=== PATIENT | female | born 1930 | race Caucasian/White ===

== ENCOUNTER → 2016-11-05 09:55 | Outpatient (CLI) | payer MEDICARE, OTHER ==
[2016-02-05 21:29] VITALS: BMI 29.0
[~2016-11-05 09:55] MED LIST: ACETAMINOPHEN500 M1 PO; ASPIRIN325 MG PO; BAYER CHEWABLE81 MG PO; BENZONATATE200 MG PO; CATAPRES0.1 MG PO; COZAAR100 MG PO; ESTER-C 500 MG1 TAB PO; LEVAQUIN500 MG PO; LEVOXYL50 MCG PO; LISINOPRIL10 MG PO; SYSTANE 0.3-0.4%5 ML EACH EYE; TRAVATAN Z2.5 ML EACH EYE; VIBRAMYCIN 100100 MG PO; VITAMIN D31000 UNIT PO; XARELTO15 MG PO
== END | disposition home or self-care (01) ==
LOC: D.US 09:55
DX: R92.8 Other abnormal and inconclusive findings on diagnostic imaging of breast (principal)

== ENCOUNTER → 2017-04-25 12:41 | Outpatient (CLI) | payer MEDICARE, OTHER ==
[2016-02-05 21:29] VITALS: BMI 29.0
== END | disposition home or self-care (01) ==
LOC: D.US 12:41
DX: R60.0 Localized edema (principal); M79.605 Pain in left leg

== ENCOUNTER 2017-10-14 05:11 | Day surgery (SDC) | payer MEDICARE, OTHER ==
[2017-10-13 12:26] LABS: BASOPHILS 0.3 % (0-2); EOSINOPHILS 2.4 % (0-7); HEMATOCRIT 40.3 % (36.0-48.0); HEMOGLOBIN 13.3 g/dL (12-16); IMMATURE GRANULOCYTES 0.4 % (0-5); LYMPHOCYTES 24.1 % (15-50); MCH 28.8 pg (26.0-34.0); MCV 87.2 fL (80.0-100.0); MEAN PLATELET VOLUME 9.9 fL (7.4-10.4); MONOCYTES 5.4 % (2-11); NEUTROPHILS 67.4 % (40-80); RBC 4.62 10x6/uL (4.00-5.40); RDW 14.2 % (11.5-14.5)
[2017-10-13 12:28] LABS: PLATELET COUNT 187 10x3/uL (130-400)
[2017-10-13 12:42] LABS: APTT 29.2 SECONDS (22.8-39.4); INR 0.95 (0.85-1.17); PROTIME 12.3 SECONDS (11.6-15.0)
[2017-10-13 12:56] LABS: ANION GAP 11.2 mmol/L (8-16); CALCIUM 9.9 mg/dL (8.5-10.1); CARBON DIOXIDE 30.9 mmol/L (21.0-32.0); CREATININE - SERUM 1.2 mg/dL (0.6-1.3); POTASSIUM - SERUM 4.1 mmol/L (3.5-5.1)
[~2017-10-14] VITALS: Ht 165.1 cm; Wt 77.1 kg
--- NOTE | ~2017-10-14 | OP ---
PATIENT NAME: ROHAN BAUMAN MEDICAL RECORD: [id number] :28 [facility]ATION:[facility] AD[facility]ION DATE: SURGEON: VIVEK PEACE DO DATE OF OPERATION: 10/14/2017 PROCEDURE PERFORMED: Left endoscopic carpal tunnel release. PREOPERATIVE DIAGNOSIS: Left carpal tunnel syndrome. POSTOPERATIVE DIAGNOSIS: Left carpal tunnel syndrome. INDICATIONS: Ms. Bauman is an 87-year-old female who had a severe pain in bilateral upper extremities into the first 3 digits that wake her up at night and are numb. She had a nerve conduction test, which showed severe bilateral carpal tunnel syndrome shown to the left on first one today. SURGEON: Vivek Peace DO TOURNIQUET TIME: 11 minutes. DESCRIPTION OF PROCEDURE: The patient was taken to the operative suite, given general anesthetic and a gram of Ancef and laid in supine position, the left upper extremity was prepped and draped in sterile fashion. A timeout was performed and everyone was in agreement of correct side, site and patient. The tourniquet had been placed above the elbow prior to being prepped and draped. Once the patient was prepped and draped and timeout was performed and given Ancef, she had no reaction even though she has a PENICILLIN ALLERGY. We used an Esmarch to exsanguinate the left upper extremity and the tourniquet was inflated to 250 mmHg. Once this was done, incision line was drawn out, the proximal wrist crease and just through the skin and then Ragnells were used to bluntly dissect down to the carpal tunnel. The proximal and distal forearm fascia was released at that time with scissors and a pickup and then the carpal tunnel itself was exposed and dilated and then the sheath was placed into the carpal tunnel. Once the sheath was placed, the camera was put in and viewed around, there is no sign of the nerve being in the way. A rasp was used to clean out the transcarpal ligament and then I probed to ensure that that was there and then the knife was used to release the transverse carpal ligament. Then, a scissors and pickup were used to release the most proximal portion of it and then under direct visualization with loupe magnification, a good release was seen any fibers that they may have kept it together were with scissors. Once this was done, the tourniquet was let down at 11 minutes. Any bleeding was coagulated with the bipolar and then the incision was closed with 5-0 Monocryl in inverted interrupted fashion and 10 mL of 0.5% Marcaine were injected around the incision site and up into the palm where the transcarpal ligament was released and Adaptic, 4 x 4s, Kerlix, and then Coban was slightly placed over the dressing. The patient was awakened and taken to recovery in stable condition. TRANSINT:[id number] Voice Confirmation ID: [id number] DOCUMENT ID: [id number] OPERATIVE REPORT [id number] ROHAN BAUMAN,VIVEK Koehler DO at 1857 CC: [id number] DICTATION DATE: 10/14/17 08 GALVANOMETER ASSEMBLER: 10/14/17 1207 [facility] 10/14/17 [facility] [address] [place] [address]
[~2017-10-14 05:11] MED LIST changes: +CO Q-10100 MG PO; +DYAZIDE 37.5/251 CAP PO; +LIPITOR40 MG PO; +NORVASC5 MG PO; +TYLENOL PM1 TAB PO; +XALATAN 0.0052.5 ML EACH EYE
[2017-10-14 05:55] VITALS: BP 127/65; Ht 165.1 cm; Wt 77.1 kg
[2017-10-14] MEDS ORDERED: DURICEF500 MG PO (07:54)
[2017-10-14] MEDS ORDERED: HYDROCODON-ACE1 EAC7 PO (07:55)
== END 2017-10-14 09:40 | disposition home or self-care (01) ==
LOC: D.OPS 05:11 → D.PAN 07:30 → D.OPS 09:40
PROVIDERS: Anesthesiology
DX: G56.03 Carpal tunnel syndrome, bilateral upper limbs (principal); I10 Essential (primary) hypertension; E03.9 Hypothyroidism, unspecified; K21.9 Gastro-esophageal reflux disease without esophagitis; Z01.812 Encounter for preprocedural laboratory examination

== ENCOUNTER → 2017-10-20 17:27 | Outpatient (CLI) | payer MEDICARE, OTHER ==
[2017-10-14 05:55] VITALS: BMI 28.3
[~2017-10-20 17:27] MED LIST changes: +DURICEF500 MG PO; +HYDROCODON-ACE1 EAC7 PO; +POTASSIUM
== END | disposition home or self-care (01) ==
LOC: D.LABREF 17:27
DX: M16.12 Unilateral primary osteoarthritis, left hip (principal); Z11.8 Encounter for screening for other infectious and parasitic diseases

== ENCOUNTER 2017-11-29 05:41 | Inpatient (IN) | payer MEDICARE, OTHER | END 2017-12-02 19:08 | DRG 470 | LOC: D.SDCHOLD 05:41 → D.MS 14:38 | PROC: 0SRB0JZ Replacement of Left Hip Joint with Synthetic Substitute, Open Approach (ICD-10-PCS; principal; 2017-11-29) | DX: M16.12 Unilateral primary osteoarthritis, left hip (principal); E03.9 Hypothyroidism, unspecified; E78.5 Hyperlipidemia, unspecified; I10 Essential (primary) hypertension; Z86.718 Personal history of other venous thrombosis and embolism; K59.00 Constipation, unspecified ==

== ENCOUNTER → 2018-07-12 08:24 | Outpatient (CLI) | payer MEDICARE, OTHER ==
[2017-11-30 12:16] VITALS: BMI 28.2
[~2018-07-12 08:24] MED LIST changes: +ELIQUIS2.5 MG PO; +HYDROCODONE-APA1 TAB PO
== END | disposition home or self-care (01) ==
LOC: D.RAD 08:00
DX: C85.88 Other specified types of non-Hodgkin lymphoma, lymph nodes of multiple sites (principal)

== ENCOUNTER → 2018-08-24 12:33 | Outpatient (CLI) | payer MEDICARE, OTHER ==
[2017-11-30 12:16] VITALS: BMI 28.2
[~2018-08-24 12:33] MED LIST changes: +DULCOLAX STOOL100 MG PO; +DULCOLAX10 MG/SUPP RC; +GENTAK3.5 GM EACH EYE; +GENTAMICIN 0.3 %5 ML LEFT EYE; +LIPITOR20 MG PO; +MELATONIN10 M1 PO; +METAMUCIL PACKE1 PKT PO; +MUCINEX600 MG PO; +SYNTHROID50 MCG PO; +ZOFRAN4 MG PO; +ZYRTEC10 MG PO; +[UNRECOGNIZED DRUG - OTHER] NASAL; +[UNRECOGNIZED DRUG - OTHER] PO
== END | disposition home or self-care (01) ==
LOC: D.CT 12:33
DX: R05 Cough (principal); J40 Bronchitis, not specified as acute or chronic

== ENCOUNTER 2018-09-17 18:51 | Inpatient (IN) | payer MEDICARE, OTHER ==
[~2018-09-17] VITALS: Ht 165.1 cm; Wt 72.6 kg
--- NOTE | ~2018-09-17 | MORECARE ---
CASE MANAGEMENT DISCHARGE SUMMARY PATIENT: ROHAN BAUMAN UNIT: [id number] ADM DATE: 09/17/18 AGE: 88 : 29 SEX: F ROOM/BED: D.2226 AUTHOR: SHEBA ALARCON PHYSICIAN: REFERRING PHYSICIAN: DAWOOD HERRERA MD DATE OF SERVICE: 09/19/18 Discharge Plan Patient Name: ROHAN BAUMAN Facility: [facility]:[place] : 1930 Planned Disposition: Home Anticipated Discharge Date: Discharge Date: Expected LOS: Initial Reviewer: [email or web address] Initial Review Date: 09/19/2018 Generated: 09/19/18 12:54 pm Patient Name: ROHAN BAUMAN Page [phone] at 1154 All edits/amendments must be made on the electronic document DICTATION DATE: 09/19/18 1154 OPERATIONS SUPPORT PROFESSIONALS: PAMELA 09/19/18 1154 RPT#: [id number] DC DATE: STATUS: ADM IN [facility] [address] [place] [address] END OF REPORT
--- NOTE | ~2018-09-17 | MORECARE ---
CASE MANAGEMENT DISCHARGE SUMMARY PATIENT: ROHAN BAUMAN UNIT: [id number] ADM DATE: 09/17/18 AGE: 88 : 29 SEX: F ROOM/BED: D.2226 AUTHOR: SHEBA ALARCON PHYSICIAN: REFERRING PHYSICIAN: MARCELLE DO MD DATE OF SERVICE: 09/27/18 Discharge Plan Patient Name: ROHAN BAUMAN Facility: [facility]:[place] : 1930 Planned Disposition: Home Anticipated Discharge Date: Discharge Date: 09/27/2018 Expected LOS: 0 Initial Reviewer: [email or web address] Initial Review Date: 09/19/2018 Generated: 09/27/18 5:56 pm Comments DCP- Discharge Planning Updated by [email or web address]: Diana Nuñez on 09/27/18 7:[address] Patient Name: ROHAN BAUMAN Encounter No: [id number] : 1930 Primary Insurance: MEDICARE A & B Anticipated DC Date: Planned Disposition: Home External Planned Provider: : DCP follow-up note: Patient in agreement with discharge plan. States her daughter will pick her up. Declines home health. No changes to plan. Case management will follow and assist as needed. Diana Nuñez DCP- Discharge Planning Updated by [email or web address]: Diana Nuñez on 09/19/18 11:[address] Dr. Do's nurse (Janeen) concerning urine culture not done on admission. She states Dr. Do would like urine culture. States her daughter has called concerning patient's aspirin and Dr. Do would like to give her aspirin 81mg a day. DCP- Discharge Planning Updated by [email or web address]: Diana Nuñez on 09/19/18 10:[address] Patient Name: ROHAN BAUMAN Admission Status: ER Accout number: [id number] Admission Date: 09-17-2018 : 1930 Admission Diagnosis: Attending: DAWOOD HERRERA Current LOS: 2 Anticipated DC Date: Planned Disposition: Home Primary Insurance: MEDICARE A & B Discharge Planning Comments: CM met with patient to discuss discharge planning. Verbal permission received to discuss discharge planning with her daughter in the room. States she lives alone. States she is independent with all ADL's and IADL's. I informed her of the availability of rehab, SNF, home health, and additional DME. States she has all the equipment she needs and declines home health at this time. States her discharge plan is to return home. States her daughter will drive her home on discharge. No needs identified at this time. CM will continue to follow and assist with discharge planning/needs. Hvac Field Service Technician: Diana Nuñez DCPIA - Discharge Planning Initial Assessment Updated by [email or web address]: Diana Nuñez on 09/19/18 11:54 am * Is the patient Alert and Oriented? Yes * How many steps to enter\exit or inside your home? 0/0 * PCP Dr. Do * Pharmacy [facility] * Preadmission Environment Home Alone * ADLs Independent * Equipment Bedside Commode Cane Walker * List name and contact numbers for known caregivers / representatives who currently or will assist patient after discharge: Kristy Winter - DTR - [phone] * Verbal permission to speak to the caregivers and representatives has been obtained from the patient. Yes * Community resources currently utilized None * Additional services required to return to the preadmission environment? No * Can the patient safely return to the preadmission environment? Yes * Has this patient been hospitalized within the prior 30 days at any hospital? No Coverage Notice Reviewer: [email or web address] Nuñez Notice Issued Date-Time: 09/19/2018 12:52 Notice Type: Notice Delivered To: Relationship to Patient: Carpentry Teacher Name: Delivery Method: - Radha Days: Prior Verbal Notification: Recipient Understood Notice: Recipient Signature: Med Rec Note Co-signed by Attending: Coverage Notice Comment: Reviewer: [id number] Nuñez Notice Issued Date-Time: 09/27/2018 8:44 Notice Type: IM Discharge Notice Notice Delivered To: Patient Relationship to Patient: Self Carpentry Teacher Name: Delivery Method: HAND - Hand Delivered Rahda Days: Prior Verbal Notification: Recipient Understood Notice: Yes Recipient Signature: Yes Med Rec Note Co-signed by Attending: Coverage Notice Comment: IMM explained, signed, copy given, original placed in MR Last DP export: 09/27/18 7:56 Patient Name: ROHAN BAUMAN Page [phone] at 1656 All edits/amendments must be made on the electronic document DICTATION DATE: 09/27/181654 PLANT FACILITIES TECHNICIAN: PAMELA 09/27/181654 RPT#: [id number] DC DATE:09/27/18 STATUS: DIS IN [facility] [address] [facility] [place] [address] END OF REPORT
--- NOTE | ~2018-09-17 | MORECARE ---
CASE MANAGEMENT DISCHARGE SUMMARY PATIENT: ROHAN BAUMAN UNIT: [id number] ADM DATE: 09/17/18 AGE: 88 : 29 SEX: F ROOM/BED: D.2226 AUTHOR: DORIAN,DOC PHYSICIAN: REFERRING PHYSICIAN: DAWOOD HERRERA MD DATE OF SERVICE: 09/19/18 Discharge Plan Patient Name: ROHAN BAUMAN Facility: [facility]:[place] : 1930 Planned Disposition: Home Anticipated Discharge Date: Discharge Date: Expected LOS: Initial Reviewer: [email or web address] Initial Review Date: 09/19/2018 Generated: 09/19/18 1:01 pm Comments DCP- Discharge Planning Updated by [email or web address]: Diana Nuñez on 09/19/18 10:[address] Patient Name: ROHAN BAUMAN Admission Status: ER Accout number: [id number] Admission Date: 09-17-2018 : 1930 Admission Diagnosis: Attending: DAWOOD HERRERA Current LOS: 2 Anticipated DC Date: Planned Disposition: Home Primary Insurance: MEDICARE A & B Discharge Planning Comments: CM met with patient to discuss discharge planning. Verbal permission received to discuss discharge planning with her daughter in the room. States she lives alone. States she is independent with all ADL's and IADL's. I informed her of the availability of rehab, SNF, home health, and additional DME. States she has all the equipment she needs and declines home health at this time. States her discharge plan is to return home. States her daughter will drive her home on discharge. No needs identified at this time. CM will continue to follow and assist with discharge planning/needs. Hand Frame Surgical Elastic Knitter: Diana Nuñez DCPIA - Discharge Planning Initial Assessment Updated by [email or web address]: Diana Nuñez on 09/19/18 11:54 am * Is the patient Alert and Oriented? Yes * How many steps to enter\exit or inside your home? 0/0 * PCP Dr. Harvey * Pharmacy [facility] * Preadmission Environment Home Alone * ADLs Independent * Equipment Bedside Commode Cane Walker * List name and contact numbers for known caregivers / representatives who currently or will assist patient after discharge: Kristy Winter - DTR - [phone] * Verbal permission to speak to the caregivers and representatives has been obtained from the patient. Yes * Community resources currently utilized None * Additional services required to return to the preadmission environment? No * Can the patient safely return to the preadmission environment? Yes * Has this patient been hospitalized within the prior 30 days at any hospital? No Last DP export: 09/19/18 10:54 a Patient Name: ROHAN BAUMAN Page [phone] at 1202 All edits/amendments must be made on the electronic document DICTATION DATE: 09/19/18 1201 PEANUT FARMER: PAMELA 09/19/18 1201 RPT#: [id number] OK DATE: STATUS: ADM IN [facility] [address] [place] [address] END OF REPORT
--- NOTE | ~2018-09-17 | MORECARE ---
CASE MANAGEMENT DISCHARGE SUMMARY PATIENT: ROHAN BAUMAN UNIT: [id number] ADM DATE: 09/17/18 AGE: 88 : 29 SEX: F ROOM/BED: D.2226 AUTHOR: SHEBA ALARCON PHYSICIAN: REFERRING PHYSICIAN: MARCELLE DO MD DATE OF SERVICE: 09/27/18 Discharge Plan Patient Name: ROHAN BAUMAN Facility: [facility]:[place] : 1930 Planned Disposition: Home Anticipated Discharge Date: Discharge Date: Expected LOS: Initial Reviewer: [email or web address] Initial Review Date: 09/19/2018 Generated: 09/27/18 9:56 am Comments DCP- Discharge Planning Updated by [email or web address]: Diana Nuñez on 09/27/18 7:[address] Patient Name: ROHAN BAUMAN Encounter No: [id number] : 1930 Primary Insurance: MEDICARE A & B Anticipated DC Date: Planned Disposition: Home External Planned Provider: : DCP follow-up note: Patient in agreement with discharge plan. States her daughter will pick her up. Declines home health. No changes to plan. Case management will follow and assist as needed. Diana Nuñez DCP- Discharge Planning Updated by [email or web address]: Diana Nuñez on 09/19/18 11:[address] with Dr. Do's nurse (Janeen) concerning urine culture not done on admission. She states Dr. Do would like urine culture. States her daughter has called concerning patient's aspirin and Dr. Do would like to give her aspirin 81mg a day. DCP- Discharge Planning Updated by [email or web address]: Diana Nuñez on 09/19/18 10:[address] Patient Name: ROHAN BAUMAN Admission Status: ER Accout number: [id number] Admission Date: 09-17-2018 : 1930 Admission Diagnosis: Attending: DAWOOD HERRERA Current LOS: 2 Anticipated DC Date: Planned Disposition: Home Primary Insurance: MEDICARE A & B Discharge Planning Comments: CM met with patient to discuss discharge planning. Verbal permission received to discuss discharge planning with her daughter in the room. States she lives alone. States she is independent with all ADL's and IADL's. I informed her of the availability of rehab, SNF, home health, and additional DME. States she has all the equipment she needs and declines home health at this time. States her discharge plan is to return home. States her daughter will drive her home on discharge. No needs identified at this time. CM will continue to follow and assist with discharge planning/needs. Piano Bench Assembler: Diana Nuñez DCPIA - Discharge Planning Initial Assessment Updated by [email or web address]: Diana Nuñez on 09/19/18 11:54 am * Is the patient Alert and Oriented? Yes * How many steps to enter\exit or inside your home? 0/0 * PCP Dr. Do * Pharmacy [facility] * Preadmission Environment Home Alone * ADLs Independent * Equipment Bedside Commode Cane Walker * List name and contact numbers for known caregivers / representatives who currently or will assist patient after discharge: Kristy Winter - DTR - [phone] * Verbal permission to speak to the caregivers and representatives has been obtained from the patient. Yes * Community resources currently utilized None * Additional services required to return to the preadmission environment? No * Can the patient safely return to the preadmission environment? Yes * Has this patient been hospitalized within the prior 30 days at any hospital? No Coverage Notice Reviewer: [id number] Nuñez Notice Issued Date-Time: 09/19/2018 12:52 Notice Type: Notice Delivered To: Relationship to Patient: Cane Cutter Name: Delivery Method: - Radha Days: Prior Verbal Notification: Recipient Understood Notice: Recipient Signature: Med Rec Note Co-signed by Attending: Coverage Notice Comment: Reviewer: [id number] Nuñez Notice Issued Date-Time: 09/27/2018 8:44 Notice Type: IM Discharge Notice Notice Delivered To: Patient Relationship to Patient: Self Cane Cutter Name: Delivery Method: HAND - Hand Delivered Radha Days: Prior Verbal Notification: Recipient Understood Notice: Yes Recipient Signature: Yes Med Rec Note Co-signed by Attending: Coverage Notice Comment: IMM explained, signed, copy given, original placed in MR Last DP export: 09/19/18 11:49 a Patient Name: ROHAN BAUMAN Page 52504 at 0856 All edits/amendments must be made on the electronic document DICTATION DATE: 09/27/18855 CHAIRPERSON ANESTHESIOLOGY: PAMELA 09/27/18855 RPT#: [id number] DC DATE: STATUS: ADM IN [facility] [address] [facility] [place] [address] END OF REPORT
[~2018-09-17 18:51] MED LIST changes: -DULCOLAX STOOL100 MG PO; -DULCOLAX10 MG/SUPP RC; -GENTAK3.5 GM EACH EYE; -GENTAMICIN 0.3 %5 ML LEFT EYE; -LIPITOR20 MG PO; -MELATONIN10 M1 PO; -METAMUCIL PACKE1 PKT PO; -MUCINEX600 MG PO; -SYNTHROID50 MCG PO; -ZOFRAN4 MG PO; -ZYRTEC10 MG PO; -[UNRECOGNIZED DRUG - OTHER] NASAL; -[UNRECOGNIZED DRUG - OTHER] PO
[2018-09-17] MEDS ORDERED: DULCOLAX10 MG/SUPP RC (18:57)
[2018-09-17] MEDS ORDERED: ZYRTEC10 MG PO ×2 (18:58→23:49)
[2018-09-17] MEDS ORDERED: ZOFRAN4 MG PO ×2 (18:58→23:48)
[2018-09-17] MEDS ORDERED: MELATONIN10 M1 PO ×2 (18:59→23:51)
[2018-09-17] MEDS ORDERED: GENTAK3.5 GM EACH EYE (19:00)
[2018-09-17] MEDS ORDERED: MUCINEX600 MG PO ×2 (19:00→23:51)
[2018-09-17 19:29] LABS: BASOPHILS 0.1 % (0-2); EOSINOPHILS 0.1 % (0-7); HEMATOCRIT 40.2 % (36.0-48.0); HEMOGLOBIN 13.3 g/dL (12-16); IMMATURE GRANULOCYTES 0.5 % (0-5); LYMPHOCYTES 12.8 % (15-50); MCHC 33.1 g/dL (31.0-37.0); MCV 81.7 fL (80.0-100.0); MONOCYTES 8.5 % (2-11); PLATELET COUNT 256 10x3/uL (130-400); RBC 4.92 10x6/uL (4.00-5.40); RDW 14.4 % (11.5-14.5); WBC 13.4 10x3/uL (4.8-10.8)
[2018-09-17 19:52] VITALS: BP 163/72
[2018-09-17 20:24] VITALS: BP 177/77
[2018-09-17 20:44] LABS: APTT 28.6 SECONDS (22.8-39.4); INR 1.15 (0.85-1.17); PROTIME 14.2 SECONDS (11.6-15.0)
[2018-09-17 21:36] LABS: APPEARANCE HAZY (CLEAR); BILIRUBIN NEGATIVE (NEGATIVE); COLOR DK YELLOW (YELLOW); GLUCOSE NEGATIVE (NEGATIVE); KETONE NEGATIVE (NEGATIVE); NITRITE POSITIVE (NEGATIVE); PROTEIN TRACE mg/dL (NEGATIVE); UROBILINOGEN NORMAL (NORMAL)
[2018-09-17 21:37] LABS: BACTERIA MANY /hpf (NONE SEEN); EPITHELIAL CELLS 0-5 /hpf (0-5); RED CELLS - URINE 0-5 /hpf (0-5)
[2018-09-17 21:43] LABS: ALBUMIN 3.1 g/dL (3.4-5.0); ANION GAP 16.1 mmol/L (8-16); BILIRUBIN - TOTAL 0.99 mg/dL (0.2-1.3); CALCIUM 8.6 mg/dL (8.5-10.1); CARBON DIOXIDE 26.2 mmol/L (21.0-32.0); CREATININE - SERUM 1.1 mg/dL (0.6-1.3); POTASSIUM - SERUM 3.3 mmol/L (3.5-5.1)
[2018-09-17] MEDS ORDERED: [UNRECOGNIZED DRUG - OTHER] PO (23:47)
[2018-09-17] MEDS ORDERED: LIPITOR20 MG PO (23:48)
[2018-09-17] MEDS ORDERED: SYNTHROID50 MCG PO (23:48)
[2018-09-17] MEDS ORDERED: DULCOLAX STOOL100 MG PO (23:49)
[2018-09-17] MEDS ORDERED: METAMUCIL PACKE1 PKT PO (23:50)
[2018-09-17] MEDS ORDERED: GENTAMICIN 0.3 %5 ML LEFT EYE (23:51)
[2018-09-17 23:52] VITALS: BP 135/71; BMI 26.6
[2018-09-17] MEDS ORDERED: [UNRECOGNIZED DRUG - OTHER] NASAL (23:54)
[2018-09-18 01:01] VITALS: BP 135/71
[2018-09-18 05:01] VITALS: BP 143/56
[2018-09-18 05:21] LABS: BASOPHILS 0.2 % (0-2); EOSINOPHILS 0.2 % (0-7); HEMOGLOBIN 12.3 g/dL (12-16); IMMATURE GRANULOCYTES 0.8 % (0-5); LYMPHOCYTES 9.2 % (15-50); MCHC 33.2 g/dL (31.0-37.0); MCV 81.1 fL (80.0-100.0); MEAN PLATELET VOLUME 10.2 fL (7.4-10.4); MONOCYTES 9.4 % (2-11); NEUTROPHILS 80.2 % (40-80); PLATELET COUNT 223 10x3/uL (130-400); RBC 4.56 10x6/uL (4.00-5.40); RDW 14.4 % (11.5-14.5)
[2018-09-18 05:33] LABS: ANION GAP 15.1 mmol/L (8-16); CALCIUM 8.4 mg/dL (8.5-10.1); CARBON DIOXIDE 26.9 mmol/L (21.0-32.0); CREATININE - SERUM 1.1 mg/dL (0.6-1.3); WBC 9.8 10x3/uL (4.8-10.8)
[2018-09-18 08:45] VITALS: BP 153/67
[2018-09-18 13:07] VITALS: BP 140/80
[2018-09-18 13:30] VITALS: BMI 26.6
[2018-09-18 13:35] VITALS: Ht 165.1 cm; Wt 72.6 kg
[2018-09-18 17:30] VITALS: BP 132/60
[2018-09-18 21:03] VITALS: BP 134/59
[2018-09-19 00:52] VITALS: BP 147/59
[2018-09-19 05:57] VITALS: BP 141/62
[2018-09-19 06:22] LABS: BASOPHILS 0.3 % (0-2); EOSINOPHILS 2.5 % (0-7); HEMATOCRIT 36.2 % (36.0-48.0); HEMOGLOBIN 11.7 g/dL (12-16); IMMATURE GRANULOCYTES 2.1 % (0-5); LYMPHOCYTES 13.8 % (15-50); MCH 26.5 pg (26.0-34.0); MCHC 32.3 g/dL (31.0-37.0); MCV 82.1 fL (80.0-100.0); MEAN PLATELET VOLUME 10.2 fL (7.4-10.4); MONOCYTES 9.1 % (2-11); NEUTROPHILS 72.2 % (40-80); PLATELET COUNT 221 10x3/uL (130-400); RBC 4.41 10x6/uL (4.00-5.40); RDW 14.5 % (11.5-14.5)
[2018-09-19 06:33] LABS: WBC 7.3 10x3/uL (4.8-10.8)
[2018-09-19 06:54] LABS: ANION GAP 14.4 mmol/L (8-16); CALCIUM 8.2 mg/dL (8.5-10.1); CARBON DIOXIDE 25.4 mmol/L (21.0-32.0); CREATININE - SERUM 0.9 mg/dL (0.6-1.3)
[2018-09-19 06:55] LABS: POTASSIUM - SERUM 3.8 mmol/L (3.5-5.1)
[2018-09-19 08:15] VITALS: BP 120/69
[2018-09-19 13:25] VITALS: BP 141/72
[2018-09-19 21:31] VITALS: BP 130/55
[2018-09-20 04:44] LABS: BASOPHILS 0.4 % (0-2); EOSINOPHILS 4.8 % (0-7); HEMATOCRIT 34.7 % (36.0-48.0); IMMATURE GRANULOCYTES 3.8 % (0-5); LYMPHOCYTES 14.5 % (15-50); MCH 26.3 pg (26.0-34.0); MCHC 31.7 g/dL (31.0-37.0); MONOCYTES 10.6 % (2-11); NEUTROPHILS 65.9 % (40-80); PLATELET COUNT 237 10x3/uL (130-400); RBC 4.18 10x6/uL (4.00-5.40); RDW 14.6 % (11.5-14.5); WBC 5.6 10x3/uL (4.8-10.8)
[2018-09-20 05:01] LABS: ANION GAP 11.2 mmol/L (8-16); CALCIUM 8.2 mg/dL (8.5-10.1); CARBON DIOXIDE 27.5 mmol/L (21.0-32.0); CREATININE - SERUM 0.8 mg/dL (0.6-1.3); POTASSIUM - SERUM 3.7 mmol/L (3.5-5.1)
[2018-09-20 06:19] VITALS: BP 139/66
[2018-09-20 08:35] VITALS: BP 168/77
[2018-09-20 12:37] VITALS: BP 187/78
[2018-09-20 17:47] VITALS: BP 135/77
[2018-09-21 01:09] VITALS: BP 172/60
[2018-09-21 04:54] LABS: BASOPHILS 0.6 % (0-2); HEMATOCRIT 35.7 % (36.0-48.0); HEMOGLOBIN 11.4 g/dL (12-16); IMMATURE GRANULOCYTES 5.4 % (0-5); LYMPHOCYTES 20.3 % (15-50); MCH 26.4 pg (26.0-34.0); MCHC 31.9 g/dL (31.0-37.0); MCV 82.6 fL (80.0-100.0); MEAN PLATELET VOLUME 10.3 fL (7.4-10.4); MONOCYTES 9.2 % (2-11); NEUTROPHILS 60.5 % (40-80); PLATELET COUNT 272 10x3/uL (130-400); RBC 4.32 10x6/uL (4.00-5.40); RDW 14.5 % (11.5-14.5); WBC 6.3 10x3/uL (4.8-10.8)
[2018-09-21 05:19] LABS: ANION GAP 9.3 mmol/L (8-16); CALCIUM 8.7 mg/dL (8.5-10.1); CARBON DIOXIDE 28.5 mmol/L (21.0-32.0); CREATININE - SERUM 0.8 mg/dL (0.6-1.3); POTASSIUM - SERUM 3.8 mmol/L (3.5-5.1)
[2018-09-21 08:33] VITALS: BP 177/68
[2018-09-21 10:19] LABS: IMMUNOGLOBULIN M 18 mg/dL (26-217)
[2018-09-21 11:21] LABS: ANA REFLEX - DIRECT Negative (Negative)
[2018-09-21 12:00] VITALS: BP 160/82
[2018-09-21 14:27] LABS: IMMUNOGLOBULIN A <5 mg/dL (64-422)
[2018-09-21 16:20] VITALS: BP 148/65
[2018-09-21 20:31] VITALS: BP 136/79
[2018-09-22 00:50] VITALS: BP 137/77
[2018-09-22 04:49] LABS: BASOPHILS 0.5 % (0-2); EOSINOPHILS 4.2 % (0-7); HEMATOCRIT 33.9 % (36.0-48.0); HEMOGLOBIN 10.7 g/dL (12-16); IMMATURE GRANULOCYTES 5.3 % (0-5); LYMPHOCYTES 16.5 % (15-50); MCH 25.9 pg (26.0-34.0); MCHC 31.6 g/dL (31.0-37.0); MCV 82.1 fL (80.0-100.0); MEAN PLATELET VOLUME 9.7 fL (7.4-10.4); MONOCYTES 8.2 % (2-11); NEUTROPHILS 65.3 % (40-80); PLATELET COUNT 232 10x3/uL (130-400); RBC 4.13 10x6/uL (4.00-5.40); RDW 14.5 % (11.5-14.5); WBC 6.2 10x3/uL (4.8-10.8)
[2018-09-22 04:58] LABS: CALC OSMOLALITY 277 mosm/kg (275-300); CALCIUM 8.3 mg/dL (8.5-10.1); CARBON DIOXIDE 29.6 mmol/L (21.0-32.0); CHLORIDE - SERUM 106 mmol/L (98-107); CREATININE - SERUM 0.7 mg/dL (0.6-1.3); GLUCOSE 99 mg/dL (74-106); POTASSIUM - SERUM 3.6 mmol/L (3.5-5.1); SODIUM 140 mmol/L (136-145); UREA NITROGEN 11 mg/dL (7-18); VANCOMYCIN - TROUGH 16.1 ug/mL (10.0-20.0); eGFR NON AFRICAN AMERICAN 83 mL/min (90-120)
[2018-09-22 05:03] VITALS: BP 124/84
[2018-09-22 05:16] LABS: IGG SUBCLASS 1 26 mg/dL (248-810); IGG SUBCLASS 2 42 mg/dL (130-555); IGG SUBCLASS 3 10 mg/dL (15-102); IGG SUBCLASS 4 <1 mg/dL (2-96); IMMUNOGLOBULIN G 87 mg/dL (700-1600)
[2018-09-22 09:03] VITALS: BP 186/85
[2018-09-22 12:33] VITALS: BP 165/72
[2018-09-22 16:38] VITALS: BP 166/72
[2018-09-22 21:13] VITALS: BP 166/77
[2018-09-22 22:07] LABS: IMMUNOGLOBULIN E <2 IU/mL (0-100)
[2018-09-23] VITALS (9 sets, daily range): BP systolic 125–199; BP diastolic 56–95
[2018-09-23 04:57] LABS: BASOPHILS 0.5 % (0-2); EOSINOPHILS 4.2 % (0-7); HEMATOCRIT 33.2 % (36.0-48.0); HEMOGLOBIN 10.6 g/dL (12-16); IMMATURE GRANULOCYTES 6.4 % (0-5); MCH 26.2 pg (26.0-34.0); MCHC 31.9 g/dL (31.0-37.0); MEAN PLATELET VOLUME 10.1 fL (7.4-10.4); MONOCYTES 9.1 % (2-11); NEUTROPHILS 58.8 % (40-80); PLATELET COUNT 217 10x3/uL (130-400); RBC 4.05 10x6/uL (4.00-5.40); RDW 14.7 % (11.5-14.5); WBC 5.5 10x3/uL (4.8-10.8)
[2018-09-23 05:14] LABS: CALC OSMOLALITY 281 mosm/kg (275-300); CALCIUM 8.3 mg/dL (8.5-10.1); CARBON DIOXIDE 29.6 mmol/L (21.0-32.0); CHLORIDE - SERUM 107 mmol/L (98-107); CREATININE - SERUM 0.7 mg/dL (0.6-1.3); GLUCOSE 93 mg/dL (74-106); POTASSIUM - SERUM 3.9 mmol/L (3.5-5.1); SODIUM 142 mmol/L (136-145); UREA NITROGEN 9 mg/dL (7-18); eGFR NON AFRICAN AMERICAN 83 mL/min (90-120)
[2018-09-24 05:35] VITALS: BP 184/84
[2018-09-24 07:45] VITALS: BP 164/76
[2018-09-24 08:35] VITALS: BP 125/74
[2018-09-24 12:08] VITALS: BP 154/75
[2018-09-24 15:38] VITALS: BP 161/67
[2018-09-24 23:06] VITALS: BP 159/67
[2018-09-25 08:24] VITALS: BP 157/75
[2018-09-25 11:56] VITALS: BP 153/73
[2018-09-25 15:57] VITALS: BP 137/51
[2018-09-25 21:02] VITALS: BP 165/76
[2018-09-26 00:55] VITALS: BP 142/39
[2018-09-26 05:01] VITALS: BP 154/74
[2018-09-26 08:05] VITALS: BP 191/87
[2018-09-26 12:02] VITALS: BP 172/77
[2018-09-26 16:21] VITALS: BP 171/79
[2018-09-26 21:01] VITALS: BP 130/70
[2018-09-27 01:39] VITALS: BP 124/74
[2018-09-27 05:58] VITALS: BP 167/78
[2018-09-27] MEDS ORDERED: FLUTICASONE PRO16 GM NASAL (07:58)
[2018-09-27] MEDS ORDERED: AZELASTINE137 MCG/0. NASAL (07:58)
[2018-09-27] MEDS ORDERED: BENZONATATE200 MG PO (07:59)
[2018-09-27] MEDS ORDERED: SINGULAIR10 MG PO (07:59)
[2018-09-27] MEDS ORDERED: NORVASC2.5 MG PO (08:00)
[2018-09-27] MEDS ORDERED: ASPIRIN325 MG PO (08:00)
[2018-09-27] MEDS ORDERED: DOXYCYCLINE HY100 M2 PO (08:01)
[2018-09-27 08:48] VITALS: BP 127/85
== END 2018-09-27 11:10 | disposition home or self-care (01) | DRG 152 ==
LOC: D.ER 18:51 → D.MS 22:02
PROVIDERS: Family Medicine; Internal Medicine Pulmonary Disease
DX: J32.9 Chronic sinusitis, unspecified (principal); J18.9 Pneumonia, unspecified organism; J47.1 Bronchiectasis with (acute) exacerbation; N39.0 Urinary tract infection, site not specified; B96.89 Other specified bacterial agents as the cause of diseases classified elsewhere; I10 Essential (primary) hypertension; E78.5 Hyperlipidemia, unspecified; E03.9 Hypothyroidism, unspecified; K44.9 Diaphragmatic hernia without obstruction or gangrene

== ENCOUNTER 2018-11-13 14:06 | Inpatient (IN) | payer MEDICARE, OTHER ==
[~2018-11-13] VITALS: Ht 165.1 cm; Wt 72.6 kg
[~2018-11-13 14:06] MED LIST changes: +AZELASTINE137 MCG/0. NASAL; +DOXYCYCLINE HY100 M2 PO; +DULCOLAX STOOL100 MG PO; +DULCOLAX10 MG/SUPP RC; +FLUTICASONE PRO16 GM NASAL; +GENTAK3.5 GM EACH EYE; +GENTAMICIN 0.3 %5 ML LEFT EYE; +LIPITOR20 MG PO; +MELATONIN10 M1 PO; +METAMUCIL PACKE1 PKT PO; +MUCINEX600 MG PO; +NORVASC2.5 MG PO; +SINGULAIR10 MG PO; +SYNTHROID50 MCG PO; +ZOFRAN4 MG PO; +ZYRTEC10 MG PO; +[UNRECOGNIZED DRUG - OTHER] NASAL; +[UNRECOGNIZED DRUG - OTHER] PO
[2018-11-13 14:57] LABS: BASOPHILS 0.1 % (0-2); EOSINOPHILS 0.1 % (0-7); HEMATOCRIT 40.9 % (36.0-48.0); HEMOGLOBIN 13.5 g/dL (12-16); IMMATURE GRANULOCYTES 0.4 % (0-5); LYMPHOCYTES 10.8 % (15-50); MCH 26.8 pg (26.0-34.0); MCV 81.3 fL (80.0-100.0); MEAN PLATELET VOLUME 10.1 fL (7.4-10.4); MONOCYTES 8.8 % (2-11); NEUTROPHILS 79.8 % (40-80); PLATELET COUNT 242 10x3/uL (130-400); RBC 5.03 10x6/uL (4.00-5.40); RDW 15.9 % (11.5-14.5); WBC 11.1 10x3/uL (4.8-10.8)
[2018-11-13 15:32] LABS: ALBUMIN 3.1 g/dL (3.4-5.0); ANION GAP 17.3 mmol/L (8-16); BILIRUBIN - TOTAL 0.87 mg/dL (0.2-1.3); CALCIUM 8.8 mg/dL (8.5-10.1); CARBON DIOXIDE 24.4 mmol/L (21.0-32.0); CREATININE - SERUM 1.3 mg/dL (0.6-1.3); POTASSIUM - SERUM 3.7 mmol/L (3.5-5.1); PROTEIN - SERUM 6.6 g/dL (6.4-8.2)
--- NOTE | 2018-11-13 16:33 | NUR ---
PT LAYING IN BED. RESPIRATIONS ARE EVEN AND UNLABORED. FAMILY MEMBERS AT BEDSIDE. NO DISTRESS NOTED. WILL CONTINUE TO MONITOR. VSS.
[2018-11-13 16:38] LABS: APPEARANCE CLEAR (CLEAR); BILIRUBIN NEGATIVE (NEGATIVE); COLOR YELLOW (YELLOW); GLUCOSE NEGATIVE (NEGATIVE); KETONE NEGATIVE (NEGATIVE); NITRITE NEGATIVE (NEGATIVE); PROTEIN NEGATIVE (NEGATIVE); SPECIFIC GRAVITY 1.015 (1.005-1.020); UROBILINOGEN NORMAL (NORMAL)
[2018-11-13 16:39] LABS: BACTERIA MODERATE /hpf (NONE SEEN); EPITHELIAL CELLS 0-5 /hpf (0-5); RED CELLS - URINE OCC /hpf (0-5)
[2018-11-13 17:30] VITALS: BP 152/54
[2018-11-13 18:29] VITALS: BP 168/61
--- NOTE | 2018-11-13 19:07 | NUR ---
MERREM STOPPED AT 190
--- NOTE | 2018-11-13 19:27 | NUR ---
PT PROVIDED DINNER TRAY
[2018-11-13 20:00] VITALS: BP 155/56
[2018-11-13 21:13] VITALS: BP 67/41
[2018-11-13 21:22] VITALS: BP 158/67
[2018-11-13 23:25] VITALS: BP 158/67; BMI 26.6
[2018-11-14 01:32] VITALS: BP 124/58
[2018-11-14 05:23] VITALS: BP 141/52
[2018-11-14 06:11] LABS: BASOPHILS 0.2 % (0-2); EOSINOPHILS 0.1 % (0-7); HEMATOCRIT 38.6 % (36.0-48.0); HEMOGLOBIN 12.4 g/dL (12-16); IMMATURE GRANULOCYTES 0.4 % (0-5); LYMPHOCYTES 14.6 % (15-50); MCH 26.2 pg (26.0-34.0); MCHC 32.1 g/dL (31.0-37.0); MCV 81.4 fL (80.0-100.0); MEAN PLATELET VOLUME 10.5 fL (7.4-10.4); MONOCYTES 10.1 % (2-11); NEUTROPHILS 74.6 % (40-80); PLATELET COUNT 236 10x3/uL (130-400); RBC 4.74 10x6/uL (4.00-5.40); RDW 15.7 % (11.5-14.5); WBC 11.1 10x3/uL (4.8-10.8)
[2018-11-14 06:31] LABS: ALBUMIN 2.6 g/dL (3.4-5.0); ANION GAP 13.5 mmol/L (8-16); BILIRUBIN - TOTAL 1.18 mg/dL (0.2-1.3); CALCIUM 8.4 mg/dL (8.5-10.1); CARBON DIOXIDE 26.5 mmol/L (21.0-32.0); CREATININE - SERUM 1.2 mg/dL (0.6-1.3); PROTEIN - SERUM 5.9 g/dL (6.4-8.2)
[2018-11-14 08:07] VITALS: BP 131/61
[2018-11-14 12:39] VITALS: BP 125/53
[2018-11-14 14:03] VITALS: Ht 165.1 cm; Wt 72.6 kg
[2018-11-14 16:06] VITALS: BP 141/61
--- NOTE | 2018-11-14 17:50 | NUR ---
PASSENGER SERVICE MANAGER NOTES- CRACKLES HEARD BILAT UPPER LOBE. ALERT AND ORIENTED X4. NO NEEDS AT THIS TIME
[2018-11-14 21:23] VITALS: BP 162/69
[2018-11-15 01:09] VITALS: BP 159/69
--- NOTE | 2018-11-15 03:35 | NUR ---
1944) IN BED HOB UP 40 DEGREES.02 2L NC.EYES CLOSED RESP. DEEP AND EVEN.DENIES ANY RESP. DIFFICULTY AT PRESENT TIME. WILL CONTINUE TO MONITOR FOR ANY CHGES. AND FOLLOW CURRENT PLAN OF CARE.
--- NOTE | 2018-11-15 03:38 | NUR ---
RESTING IN BED RESP UNLABORED NO APPARENT DISTRESS CALL LIGHT IN REACH
[2018-11-15 04:34] VITALS: BP 146/58
[2018-11-15 05:13] LABS: BASOPHILS 0.3 % (0-2); EOSINOPHILS 1.6 % (0-7); HEMATOCRIT 36.2 % (36.0-48.0); HEMOGLOBIN 11.7 g/dL (12-16); IMMATURE GRANULOCYTES 0.6 % (0-5); LYMPHOCYTES 13.6 % (15-50); MCH 26.2 pg (26.0-34.0); MCHC 32.3 g/dL (31.0-37.0); MEAN PLATELET VOLUME 10.5 fL (7.4-10.4); MONOCYTES 8.1 % (2-11); NEUTROPHILS 75.8 % (40-80); PLATELET COUNT 220 10x3/uL (130-400); RBC 4.47 10x6/uL (4.00-5.40); RDW 15.5 % (11.5-14.5); WBC 9.6 10x3/uL (4.8-10.8)
[2018-11-15 05:27] LABS: ANION GAP 13.4 mmol/L (8-16); CALCIUM 8.5 mg/dL (8.5-10.1); CARBON DIOXIDE 26.7 mmol/L (21.0-32.0); POTASSIUM - SERUM 3.1 mmol/L (3.5-5.1)
[2018-11-15 08:39] VITALS: BP 130/73
--- NOTE | 2018-11-15 09:31 | NUR ---
PT SITTING UP IN BED ON THE SIDE EATING BREAKFAST, STATED THAT HER SIDES HURTS ON THE LEFT UNDERNEATH RIB CAGE ESPECIALLY WHEN SHE COUGHS, ADMINISTERED PRN PAIN MEDICATION, PT IV IN LEFT HAND INFILTRATED, REMOVED IB AND ADVISED I WILL RESITE AFTER SHE GETS DONE WITH HER SHOWER, NO OTHER NEEDS VOICED, CONTINUE WITH PLAN OF CARE
--- NOTE | 2018-11-15 12:19 | NUR ---
PT SITTING IN CHAIR AT BEDSIDE, IV HAS BEEN RESITED TO PT LEFT FOREARM, 22G 1ST STICK, NO NEEDS VOICED, NO SIGNS OF DISTRESS, CONTINUE WITH PLAN OF CARE
[2018-11-15 13:17] VITALS: BP 96/57
--- NOTE | 2018-11-15 15:19 | MORECARE ---
CASE MANAGEMENT DISCHARGE SUMMARY PATIENT: ROHAN BAUMAN UNIT: [id number] ADM DATE: 11/13/18 AGE: 88 : 29 SEX: F ROOM/BED: D.2228 AUTHOR: DORIAN,DOC PHYSICIAN: REFERRING PHYSICIAN: MARCELLE DO MD DATE OF SERVICE: 11/15/18 Discharge Plan Patient Name: ROHAN BAUMAN Facility: [facility]:[place] : 1930 Planned Disposition: Home Health Service Anticipated Discharge Date: Discharge Date: Expected LOS: Initial Reviewer: [email or web address] Initial Review Date: 11/15/2018 Generated: 11/15/18 4:18 pm Comments DCP- Discharge Planning Updated by [email or web address]: Diana Nuñez on 11/15/18 2:[address] Patient Name: ROHAN BAUMAN Admission Status: ER Accout number: [id number] Admission Date: 11-13-2018 : 1930 Admission Diagnosis: Attending: MARCELLE DO Current LOS: 2 Anticipated DC Date: Planned Disposition: Home Health Service Primary Insurance: MEDICARE A & B Discharge Planning Comments: CM met with patient to discuss discharge planning, she is alone in the room. States she is independent with all ADL's and IADL's. States she uses her cane when she goes out shopping. States is current with [facility]. States her plan is to return home with resumption of home health. Denies need for additional DME. No additional needs identified. States her family will take her home on discharge. CM will continue to follow and assist with discharge planning/needs. Pre Press Proofer: Diana Nuñez DCPIA - Discharge Planning Initial Assessment Updated by [email or web address]: Daina Nuñez on 11/15/18 3:15 pm * Is the patient Alert and Oriented? Yes * How many steps to enter\exit or inside your home? 0/0 * PCP Dr. Do * Pharmacy [facility] * Preadmission Environment Home Alone * ADLs Independent * Equipment Bedside Commode Cane Walker * List name and contact numbers for known caregivers / representatives who currently or will assist patient after discharge: Kristy Winter [facility] - [phone] * Verbal permission to speak to the caregivers and representatives has been obtained from the patient. Yes * Community resources currently utilized Home Health * Please name any agencies selected above. [place] * Additional services required to return to the preadmission environment? No * Can the patient safely return to the preadmission environment? Yes * Has this patient been hospitalized within the prior 30 days at any hospital? No Patient Name: ROHAN BAUMAN Page [phone] at 1519 All edits/amendments must be made on the electronic document DICTATION DATE: 11/15/181517 WHEAT SHIPPER: PAMELA 11/15/181517 RPT#: [id number] HI DATE: STATUS: ADM IN [facility] [address] [place] [address] END OF REPORT
[2018-11-15 16:49] VITALS: BP 148/73
--- NOTE | 2018-11-15 18:54 | NUR ---
ENGINE WIPER COMPLETE. PT LYING IN BED AAO X4 TO PERSON, PLACE, TIME, AND SITUATION. DENIES NEEDS AT THIS TIME. CL IN REACH.
[2018-11-15 21:34] VITALS: BP 141/67
--- NOTE | 2018-11-16 02:15 | NUR ---
PT SLEEPING. BREATHING EVEN AND UNLABORED. BED LOW, CALL LIGHT IN REACH. WILL CONTINUE POC.
--- NOTE | 2018-11-16 05:51 | NUR ---
8460) CALLED PT, NAME TO PUT EYE DROPS IN STATES GET OUT SO I CAN SLEEP. I PUT MY OWN DROPS IN
[2018-11-16 06:23] LABS: BASOPHILS 0.3 % (0-2); EOSINOPHILS 2.1 % (0-7); HEMATOCRIT 36.1 % (36.0-48.0); HEMOGLOBIN 11.4 g/dL (12-16); IMMATURE GRANULOCYTES 1.5 % (0-5); LYMPHOCYTES 7.6 % (15-50); MCH 25.6 pg (26.0-34.0); MCHC 31.6 g/dL (31.0-37.0); MCV 81.1 fL (80.0-100.0); MEAN PLATELET VOLUME 10.3 fL (7.4-10.4); MONOCYTES 9.7 % (2-11); NEUTROPHILS 78.8 % (40-80); PLATELET COUNT 240 10x3/uL (130-400); RBC 4.45 10x6/uL (4.00-5.40); RDW 15.7 % (11.5-14.5)
[2018-11-16 06:25] LABS: WBC 6.7 10x3/uL (4.8-10.8)
[2018-11-16 06:31] LABS: ANION GAP 12.9 mmol/L (8-16); CALCIUM 8.7 mg/dL (8.5-10.1); CARBON DIOXIDE 26.9 mmol/L (21.0-32.0); POTASSIUM - SERUM 3.8 mmol/L (3.5-5.1)
--- NOTE | 2018-11-16 07:42 | NUR ---
PT IS LYING IN BED, IV POLE ALARM RINGING, PT STATED ALARM IS IRRITATING HER, ADVISED SHE HAS 2 ABX THIS MORNING WHEN DONE I WILL SL HER UNTIL NEXT ABX DOSE. PT WAS AGREEABLE TO THAT. ASSISTED PT WITH PERSONAL NEEDS. NO OTHER NEEDS VOICED, CONTINUE WITH PLAN OF CARE
[2018-11-16 08:45] VITALS: BP 163/75
--- NOTE | 2018-11-16 10:30 | NUR ---
PATIENT IN BED WAITING TO GO TO CT. NO COMPLAINTS OR SIGNS OF DISTRESS. CALL LIGHT WITHIN REACH.
--- NOTE | 2018-11-16 11:14 | NUR ---
PT LYING IN BED STATING SHE DOES NOT FEEL WELL, PT STATED SHE IS VERY COLD, SIMONE WITH CT CAME TO GET PT FOR TEST, CONTINUE WITH PLAN OF CARE,
--- NOTE | 2018-11-16 11:45 | NUR ---
PT IS RUNNING LOW GRADE FEVER OF 99.1, STATES SHE IS FREEZING AND VERY WEAK, PT IS COUGHING UP PHELGM, WILL SEE IF DOCTOR WANTS FLU TEST
--- NOTE | 2018-11-16 11:47 | NUR ---
PT HAD FLU TEST ON 11/13 WHICH WAS NEGATIVE. CONTINUE WITH PLAN OF CARE
[2018-11-16 12:47] VITALS: BP 198/85
--- NOTE | 2018-11-16 14:03 | NUR ---
NUTRITION F/U PT TOLERATING REG VEGETARIAN DIET WITH 50% INTAKE RECENT MEALS. WILL CONTINUE TO PROVIDE DIET, HONOR FOOD PREFERENCES. RD FOLLOWING
--- NOTE | 2018-11-16 15:47 | NUR ---
PT STATES SHE IS FEELING WORSE FREZING ALL DAY PT TEMP NOW IA [address] DO PT DAUGHTER PETER IN ROOM
--- NOTE | 2018-11-16 16:15 | NUR ---
PT DAUGHTER AT DESK STATING SHE IS CONCERNED THAT HER MOTHER IS DYING, ADVISED DAUGHTER THAT PT WAS GIVEN MORPHINE FOR PAIN AT 1330 AND AT HER AGE AND SOMEONE THAT DOES NOT TAKE ANYTHING AT HOME FOR PAIN THAT COULD HAVE MADE PT CONFUSED AND SEEM "OUT OF IT" PT IS MOANING IN PAIN AND RESPONDS WITH " I JUST DON'T FEEL WELL I'M VERY SICK. WILL GIVE PT TYLENOL INSTEAD OF MORPHINE. GAVE PT OPTION OF EITHER AND PT WANTED IV AT THE TIME
[2018-11-16 16:53] VITALS: BP 137/56
[2018-11-16 17:26] LABS: BASOPHILS 0.2 % (0-2); EOSINOPHILS 0.8 % (0-7); HEMATOCRIT 34.5 % (36.0-48.0); HEMOGLOBIN 11.2 g/dL (12-16); IMMATURE GRANULOCYTES 1.7 % (0-5); LYMPHOCYTES 12.8 % (15-50); MCH 26.3 pg (26.0-34.0); MCHC 32.5 g/dL (31.0-37.0); MEAN PLATELET VOLUME 9.9 fL (7.4-10.4); MONOCYTES 14.6 % (2-11); NEUTROPHILS 69.9 % (40-80); PLATELET COUNT 220 10x3/uL (130-400); RBC 4.26 10x6/uL (4.00-5.40); RDW 15.8 % (11.5-14.5)
[2018-11-16 17:34] LABS: APTT 29.6 SECONDS (22.8-39.4); INR 1.12 (0.85-1.17); PROTIME 13.9 SECONDS (11.6-15.0)
[2018-11-16 20:00] VITALS: BP 109/46
--- NOTE | 2018-11-16 21:50 | NUR ---
PT REFUSED VEST AND METANEB
[2018-11-17] VITALS (10 sets, daily range): BP systolic 106–164; BP diastolic 47–74
[2018-11-17 06:05] LABS: BASOPHILS 0.6 % (0-2); EOSINOPHILS 0.8 % (0-7); HEMATOCRIT 35.2 % (36.0-48.0); HEMOGLOBIN 11.3 g/dL (12-16); IMMATURE GRANULOCYTES 4.1 % (0-5); LYMPHOCYTES 19.8 % (15-50); MCHC 32.1 g/dL (31.0-37.0); MCV 81.1 fL (80.0-100.0); MEAN PLATELET VOLUME 10.3 fL (7.4-10.4); MONOCYTES 17.4 % (2-11); NEUTROPHILS 57.3 % (40-80); PLATELET COUNT 221 10x3/uL (130-400); RBC 4.34 10x6/uL (4.00-5.40); RDW 15.8 % (11.5-14.5)
[2018-11-17 06:29] LABS: ANION GAP 11.6 mmol/L (8-16); CALCIUM 8.2 mg/dL (8.5-10.1); CARBON DIOXIDE 28.1 mmol/L (21.0-32.0); POTASSIUM - SERUM 3.7 mmol/L (3.5-5.1)
[2018-11-17 06:41] LABS: WBC 3.6 10x3/uL (4.8-10.8)
--- NOTE | 2018-11-17 10:25 | NUR ---
PT RESTING IN BED. NO SIGNS OF DISTRESS. IV TO LEFT HAND PATENT NO REDNESS OR TENDERNESS. COMPLAINS OF LEFT SIDE PAIN. HAVING PROCEDURE TODAY. ON TELEMETRY 72 NORMAL SINUS. DENIES ANY NEED AT THIS TIME. CALL LIGHT IN REACH. BED LOW POSITION. NO FAMILY AT BEDSIDE AT THIS TIME.
[2018-11-18] VITALS: BP 140/70
[2018-11-18 04:00] VITALS: BP 148/58
--- NOTE | 2018-11-18 07:59 | NUR ---
PATIENT IN BED, SKIN W/D TO TOUCH, COLOR PINK, RESP. REGULAR AND EVEN AT 20. NORMAL SALINE INFUSING AT 10 MLS VIA RT HAND. DENIES ANY C/O PAIN OR DISCOMFORT WHEN ASKED. C/L WITHIN REACH AND SR'S UP X'S 2.
[2018-11-18 13:20] VITALS: BP 134/60
[2018-11-18 17:21] VITALS: BP 120/87
--- NOTE | 2018-11-18 17:29 | NUR ---
PATIENT C/O NAUSEA ZOFRAN 8 MG GIVEN AT 1421 TOO EARLY PATIENT GIVEN COLD WASH RAG AND COKE TO SIP IN. DAUGHTER AT BEDSIDE. C/L WITHIN REACH AND SR'S UP X'S.
--- NOTE | 2018-11-18 18:40 | NUR ---
ALERT AND ORIENTED WITH FAMILY PRESENT IV LEFT FOREARM NS AT 30CC/HR. NO S/S OF INFECTION /INFILTRATION. LIMITED ROM TO RT. EXTREMITIY DUE TO FX. ENCOURAGED TO USE CALL LIGHT FOR ASSSIT.
--- NOTE | 2018-11-18 19:00 | NUR ---
REPORT RECEIVED AND CARE OF PT ASSUMED. PT LYING ON RIGHT SIDE WITH EYES CLOSED. IV IN RIGHT FA PATENT WITH NS INFUSING AT KVO. O2 IN USE VIA NC AT 2L. WILL MONITOR FOR NEEDS.
[2018-11-18 19:56] VITALS: BP 173/75
[2018-11-18 21:06] LABS: ACID FAST SMEAR Negative (()); AFB SPECIMEN PROCESSING Concentration (())
--- NOTE | 2018-11-18 21:13 | NUR ---
HS MEDICATIONS GIVEN....ON BEDSIDE TABLE, PT WANTS TO TAKE WHEN NAUSEA IMPROVES.
--- NOTE | 2018-11-18 21:52 | NUR ---
GAVE 8 MG ZOFRAN PER PRN ORDER FOR NAUSEA. WILL MONITOR FOR EFFECTIVENESS. DAUGHTER IS AT BEDSIDE.
--- NOTE | 2018-11-18 23:12 | NUR ---
CALLED MD PUMP STITCHER FOR N/V MED...PERSISTING DESPITE GIVING 8 MG ZOFRAN AT 2151...PT DRY HEAVING. RECEIVED ORDER TO GIVE PHENERGAN 25 MG SUPP Q4HR PRN.
[2018-11-19] VITALS: BP 133/55
[2018-11-19 04:00] VITALS: BP 156/64
--- NOTE | 2018-11-19 05:30 | NUR ---
PT BATHED AND ALL LINEN AND GOWN CHANGED...PT INCONTINENT SEVERAL TIMES OVERNIGHT. STATES THAT SHE DIDN'T FEEL LIKE GETTING UP TO VOID.
--- NOTE | 2018-11-19 06:30 | NUR ---
PT FEELING SOME BETTER THIS AM...NAUSEA IMPROVED. RESTING QUIETLY AT THIS TIME.
[2018-11-19 06:34] LABS: BASOPHILS 0.3 % (0-2); EOSINOPHILS 0 % (0-7); HEMATOCRIT 35.8 % (36.0-48.0); HEMOGLOBIN 11.5 g/dL (12-16); IMMATURE GRANULOCYTES 2.6 % (0-5); LYMPHOCYTES 7.6 % (15-50); MCHC 32.1 g/dL (31.0-37.0); MCV 80.8 fL (80.0-100.0); MEAN PLATELET VOLUME 9.8 fL (7.4-10.4); MONOCYTES 2.1 % (2-11); NEUTROPHILS 87.4 % (40-80); PLATELET COUNT 224 10x3/uL (130-400); RBC 4.43 10x6/uL (4.00-5.40); RDW 15.9 % (11.5-14.5); WBC 3.8 10x3/uL (4.8-10.8)
[2018-11-19 06:51] LABS: ALBUMIN 2.2 g/dL (3.4-5.0); ANION GAP 14.1 mmol/L (8-16); BILIRUBIN - TOTAL 0.49 mg/dL (0.2-1.3); CALCIUM 7.8 mg/dL (8.5-10.1); CARBON DIOXIDE 25.7 mmol/L (21.0-32.0); MAGNESIUM - SERUM 2.1 mg/dL (1.8-2.4); POTASSIUM - SERUM 3.8 mmol/L (3.5-5.1); PROTEIN - SERUM 5.1 g/dL (6.4-8.2)
[2018-11-19 08:32] VITALS: BP 155/70
--- NOTE | 2018-11-19 09:32 | NUR ---
PATIENT'S SON BROUGHT HER WAFFLE HOUSE SHE ATE CHEESE EGGS AND FEW BITES OF GRITS. PHENERGAN 25 MG SUPP. GIVEN AT 0830. C/L WITHIN REACH AND SR'S UP X'S Q. SON REDIRECTED OF CLEAR LIQUID DIET AND VERBALIZED UNDERSTANDING.
[2018-11-19 16:58] VITALS: BP 181/85
--- NOTE | 2018-11-19 18:11 | NUR ---
ALERT AND ORIENTED. LUNGS DIMINISHED X4 POSTERIOR. CAP REFILL <3 SEC. UP WITH ASSIST. WITH TYLENO GIVEN PRN FOR FEVER. IVF INFUSING AT PRESCRIBED RATE. DENIES ANY PAIN OR DISCOMFORT. ENCOURAGED TO USE CALL LIGHT FOR ASSIST.
--- NOTE | 2018-11-19 19:00 | NUR ---
REPORT RECEIVED AND CARE OF PT ASSUMED. PT LYING IN SUPINE POSITION WATCHING TV. STATES FEELING BETTER TONIGHT WITH NO NAUSEA. IV IN RIGHT FA PATENT WITH NS INFUSING AT 30 ML / HR. WILL MONITOR FOR NEEDS. CALL LIGHT WITHIN REACH.
[2018-11-19 20:00] VITALS: BP 155/76
--- NOTE | 2018-11-19 20:33 | NUR ---
HS MEDICATIONS GIVEN. WILL CONTINUE TO MONITOR FOR NEEDS.
--- NOTE | 2018-11-19 20:45 | NUR ---
PT ASSISTED UP TO USE RESTROOM...SHE IS VERY WEAK AND REQUIRES MAXIMIM ASSIST WHEN AMBULATING.
[2018-11-20 04:00] VITALS: BP 166/72
--- NOTE | 2018-11-20 05:24 | NUR ---
GAVE PHENERGAN 25 MG SUPP FOR C/O NAUSEA, PER PRN ORDER.
[2018-11-20 06:24] LABS: BASOPHILS 0.3 % (0-2); EOSINOPHILS 0 % (0-7); HEMOGLOBIN 11.4 g/dL (12-16); IMMATURE GRANULOCYTES 2.3 % (0-5); MCHC 32.6 g/dL (31.0-37.0); MCV 79.7 fL (80.0-100.0); MEAN PLATELET VOLUME 9.8 fL (7.4-10.4); MONOCYTES 6.3 % (2-11); NEUTROPHILS 79.1 % (40-80); PLATELET COUNT 217 10x3/uL (130-400); RBC 4.39 10x6/uL (4.00-5.40); RDW 15.7 % (11.5-14.5)
--- NOTE | 2018-11-20 06:29 | NUR ---
ASSISTED PT UP TO VOID AND HAVE LOOSE BM. PT VERY WEAK AND REQUIRES 2 PERSON ASSIST. POSITIONED BACK IN BED FOR COMFORT. CALL LIGHT WITHIN REACH.
[2018-11-20 06:53] LABS: ALBUMIN 2.2 g/dL (3.4-5.0); BILIRUBIN - DIRECT 0.19 mg/dL (0.00-0.30); BILIRUBIN - INDIRECT 0.26 mg/dL (0.00-1.00); BILIRUBIN - TOTAL 0.45 mg/dL (0.2-1.3); CALCIUM 8.1 mg/dL (8.5-10.1); CARBON DIOXIDE 25.7 mmol/L (21.0-32.0); CREATININE - SERUM 0.8 mg/dL (0.6-1.3); POTASSIUM - SERUM 3.7 mmol/L (3.5-5.1); PROTEIN - SERUM 5.1 g/dL (6.4-8.2)
--- NOTE | 2018-11-20 08:05 | NUR ---
PATIENT RESTING IN BED, RESPIRATIONS NON-LABORED BUT HAS RHONCHI THROUGH UPPER LOBES. PATIENT REPORTS CLEAR SPUTUM WITH PRODUCTIVE COUGH. 02 2LNS. PATIENT DENIES NAUSEA OR PAIN AT THIS TIME. NO NEEDS VOICED. CL IN REACH
[2018-11-20 08:25] VITALS: BP 165/88
--- NOTE | 2018-11-20 10:53 | NUR ---
Rehab Note- Acute Inpatient Rehab prescreen order received. The patient was signed off by Physical Therapy on Eval 11/15. Spoke with LATOYA Ortiz. Will follow at this time to see if any functional changes noted. Thank you for this refferal! Mary Wallace RN Clinical Liaison, [facility] Rehab
[2018-11-20 13:31] VITALS: BP 191/92
[2018-11-20] MEDS ORDERED: NORVASC2.5 MG PO (14:01)
[2018-11-20] MEDS ORDERED: MAXZIDE 75/501 TAB PO (14:03)
[2018-11-20 14:13] LABS: FUNGUS STAIN Final report (())
[2018-11-20 17:05] VITALS: BP 167/73
[2018-11-20 20:00] VITALS: BP 183/92
--- NOTE | 2018-11-20 20:00 | NUR ---
PT IS RESTING IN BED WITH EYES OPEN. ALERT AND ORIENTED X 3. DENIES ACUTE PAIN OR DISCOMFORT AT THIS TIME. NO NEEDS VOICED. PT STATES SHE HAS HAD NO N/V/D TODAY. IV INFUSING TO RFA WITHOUT DIFFICULTY. NO REDNESS OR EDEMA NOTED AT THE INSERTION SITE. SR'S ARE UP X 2 IN BED. CALL LIGHT AND BEDSIDE TABLE ARE WITHIN EASY REACH.
--- NOTE | 2018-11-20 22:21 | NUR ---
PT IS RESTING QUIETLY IN BED WITH EYES CLOSED. RESPS ARE EVEN AND UNLABORED. NO ACUTE DISTRESS NOTED.
--- NOTE | 2018-11-21 00:52 | NUR ---
PT RESTING IN BED WITH EYES CLOSED.
--- NOTE | 2018-11-21 03:22 | NUR ---
PT RESTING QUIETLY IN BED WITH EYES CLOSED. NO DISTRESS NOTED.
[2018-11-21 04:00] VITALS: BP 185/896
[2018-11-21 07:41] VITALS: BP 188/96
--- NOTE | 2018-11-21 10:57 | NUR ---
REHAB PRESCREENING Rehab continues to follow this patient. PT placed patient on hold yesterday secondary to weakness and increased BP. Rehab will need PT gait in order to assess admission criteria. Thank you for this referral! Zohra Molina, UPHOLSTERY INSTRUCTOR Rehab Payroll Accountant
[2018-11-21 12:30] VITALS: BP 156/59
[2018-11-21 18:05] VITALS: BP 184/89
[2018-11-21 20:00] VITALS: BP 158/70
--- NOTE | 2018-11-21 20:20 | NUR ---
PT RESTING IN BED. ALERT AND ORIENTED. NO SIGNS OF DISTRESS. BREATHING EVEN AND UNLABORED. PT STATES NO PROBLEMS AT THIS TIME. SKIN CLEAN DRY AND INTACT. IV SITE RT FA DRESSING CLEAN DRY AND INTACT. NO SIGNS OF INFECTION. LUNG SOUNDS CRACKES WHEEZING. BOWEL SOUNDS ACTIVE. NO LOWER LEG SWELLING PRESENT. WILL CONTINUE PLAN OF CARE. CALL LIGHT IN REACH.
[2018-11-22 04:00] VITALS: BP 151/73
[2018-11-22 04:52] LABS: BASOPHILS 0.2 % (0-2); EOSINOPHILS 0 % (0-7); HEMATOCRIT 38.4 % (36.0-48.0); HEMOGLOBIN 12.5 g/dL (12-16); IMMATURE GRANULOCYTES 4.3 % (0-5); LYMPHOCYTES 9.1 % (15-50); MCH 25.6 pg (26.0-34.0); MCHC 32.6 g/dL (31.0-37.0); MCV 78.7 fL (80.0-100.0); MEAN PLATELET VOLUME 9.5 fL (7.4-10.4); MONOCYTES 3.9 % (2-11); NEUTROPHILS 82.5 % (40-80); PLATELET COUNT 237 10x3/uL (130-400); RBC 4.88 10x6/uL (4.00-5.40); RDW 15.4 % (11.5-14.5)
[2018-11-22 04:58] LABS: WBC 4.4 10x3/uL (4.8-10.8)
[2018-11-22 05:08] LABS: ANION GAP 15.9 mmol/L (8-16); CALCIUM 8.8 mg/dL (8.5-10.1); CARBON DIOXIDE 24.7 mmol/L (21.0-32.0); CREATININE - SERUM 0.8 mg/dL (0.6-1.3); POTASSIUM - SERUM 3.6 mmol/L (3.5-5.1)
[2018-11-22 09:07] VITALS: BP 174/79
--- NOTE | 2018-11-22 10:49 | NUR ---
Rehab Note- Continue to follow the patient at this time. Has a CT of Abdomen ordered at this time d/t continued c/o nausea. Will continue to follow. Thank you for this referral! Lev Wallace RN Clinical Liaison, [facility] Rehab
--- NOTE | 2018-11-22 10:55 | NUR ---
LOSS PREVENTION AUDITOR STATED PATIENT VOMITTED UP HER MEDICINE. STATED SHE IS TAKING CARE OF HER AND CLEANING HER UP. PATIENT HAS NO COMPLAINTS. CALL LIGHT WITHIN REACH. PHEN SUPPOSITORY GIVEN THIS AM. STATED ZOFRAN DOESNT WORK.
[2018-11-22 13:18] LABS: FUNGUS CULTURE RESULT 1 Candida albicans (())
[2018-11-22 13:49] VITALS: BP 167/78
--- NOTE | 2018-11-22 13:55 | NUR ---
Nutrition Follow Up: Pt stated that she did not feel well and that she did not feel like herself. She said "something is wrong with my brain." RD encouraged pt to increase po intake as able and to make staff aware of any food preferences. Noted per chart pt with N/V today. Diet: Regular Vegetarian PO Intake: 46% meal avg BM: 11/21/18 No new wt to assess Labs reviewed - Glucose elevated Meds noted including Solu Medrol Rec continue current diet as tolerated. Will honor food preferences. RD following.
[2018-11-22 16:45] VITALS: BP 180/91
--- NOTE | 2018-11-22 18:45 | NUR ---
PATIENT IN BED WITH IV INTACT. NO COMPLAINTS OR SIGNS OF DISTRESS. CALL LIGHT WITHIN REACH.
--- NOTE | 2018-11-22 20:30 | NUR ---
PT RESTING IN BED. ALERT AND ORIENTED. NO SIGNS OF DISTRESS. BREATHING EVEN AND UNLABORED. PT STATES NO PROBLEMS AT THIS TIME. SKIN CLEAN DRY AND INTACT. IV SITE RT FA DRESSING CLEAN DRY AND INTACT. NO SIGNS OF INFECTION. BOWEL SOUNDS ACTIVE. NO LOWER LEG SWELLING PRESENT. WILL CONTINUE PLAN OF CARE. CALL LIGHT IN REACH.
[2018-11-22 21:20] VITALS: BP 187/85
[2018-11-23 00:30] VITALS: BP 164/74
--- NOTE | 2018-11-23 03:12 | NUR ---
I CONCUR WITH MISSILE MECHANIC ASSESSMENT.
[2018-11-23 05:28] LABS: BASOPHILS 0.3 % (0-2); EOSINOPHILS 0 % (0-7); HEMATOCRIT 39.4 % (36.0-48.0); HEMOGLOBIN 12.9 g/dL (12-16); IMMATURE GRANULOCYTES 5.4 % (0-5); LYMPHOCYTES 9.2 % (15-50); MCH 25.7 pg (26.0-34.0); MCHC 32.7 g/dL (31.0-37.0); MCV 78.6 fL (80.0-100.0); MEAN PLATELET VOLUME 9.9 fL (7.4-10.4); NEUTROPHILS 80.1 % (40-80); PLATELET COUNT 255 10x3/uL (130-400); RBC 5.01 10x6/uL (4.00-5.40); RDW 15.6 % (11.5-14.5)
[2018-11-23 05:37] LABS: WBC 5.8 10x3/uL (4.8-10.8)
[2018-11-23 05:45] VITALS: BP 146/85
[2018-11-23 06:23] LABS: ANION GAP 15.9 mmol/L (8-16); CALCIUM 8.7 mg/dL (8.5-10.1); CARBON DIOXIDE 26.3 mmol/L (21.0-32.0)
[2018-11-23 06:34] LABS: CREATININE - SERUM 1.2 mg/dL (0.6-1.3); POTASSIUM - SERUM 4.2 mmol/L (3.5-5.1)
[2018-11-23 08:45] VITALS: BP 174/92
--- NOTE | 2018-11-23 08:50 | NUR ---
PATIENT IN BED WITH EYES CLOSED RESTING QUIETLY. IV INTACT. CALL LIGHT WITHIN REACH.
--- NOTE | 2018-11-23 10:40 | NUR ---
PATIENT RECIEVED IV ZOFRAN FOR NAUSEA. STATED WANTED TO WAIT A LITTLE BIT TO TAKE PO MEDS. FAMILY AT BEDSIDE. CALL LIGHT WITHIN REACH.
[2018-11-23 12:45] VITALS: BP 157/82
--- NOTE | 2018-11-23 12:45 | NUR ---
PATIENT SITTING UP ON SIDE OF BED WITH NO COMPLAINTS AT THIS TIME. IV INTACT. CALL LIGHTW ITHIN REACH.
--- NOTE | 2018-11-23 14:55 | NUR ---
GAVE PHENERGAN PO PER DR. DO AND TOLD PATIENT THAT ZOFRAN DRIP WOULD BE STARTED WHEN BROUGHT UP BY PHARAMCY. VERBALIZED UNDERSTANDING. IV INTACT. CALL LIGHT WITHIN REACH.
[2018-11-23 16:57] VITALS: BP 179/85
--- NOTE | 2018-11-23 18:50 | NUR ---
PATIENT IN BED WITH NO COMPLAINTS OR SIGNS OF DISTRESS. IV INTACT. ZOFRAN INFUSING. STATED FEELING BETTER AT THIS TIME. FAMILY AT BEDSIDE. CALL LIGHT WITHIN REACH.
--- NOTE | 2018-11-23 20:20 | NUR ---
PT RESTING IN BED. ALERT AND ORIENTED. NO SIGNS OF DISTRESS. BREATHING EVEN AND UNLABORED. PT STATES NO PROBLEMS AT THIS TIME. IV SITE RT FA DRESSING CLEAN DRY AND INTACT. NO SIGNS OF INFECTION. 2LO2 NC. BOWEL SOUNDS ACTIVE. SKIN CLEAN DRY AND INTACT. NO LOWER LEG SWELLING PRESENT. WILL CONTINUE PLAN OF CARE. CALL LIGHT IN REACH. BED LOWERD AND LOCKED.
[2018-11-23 20:25] VITALS: BP 174/86
[2018-11-24 00:14] VITALS: BP 138/78
--- NOTE | 2018-11-24 03:50 | NUR ---
PT COMPLAINING OF NAUSEA. GIVEN PO PHENERGAN PER MAR. WILL FALLOW UP. ZOFRAN DRIP GOING IV AT 4.7.
--- NOTE | 2018-11-24 04:12 | NUR ---
AGREE WITH 3RD PRESSMAN ASSESSMENT. PT WITHOUT DISTRESS OR NEEDS AT THIS TIME. WILL CONTINUE TO MONITOR
[2018-11-24 04:13] LABS: BASOPHILS 0.3 % (0-2); EOSINOPHILS 0 % (0-7); HEMATOCRIT 38.3 % (36.0-48.0); HEMOGLOBIN 12.9 g/dL (12-16); IMMATURE GRANULOCYTES 4.5 % (0-5); LYMPHOCYTES 9.4 % (15-50); MCH 26.5 pg (26.0-34.0); MCHC 33.7 g/dL (31.0-37.0); MCV 78.8 fL (80.0-100.0); MEAN PLATELET VOLUME 9.9 fL (7.4-10.4); MONOCYTES 3.6 % (2-11); NEUTROPHILS 82.2 % (40-80); PLATELET COUNT 268 10x3/uL (130-400); RBC 4.86 10x6/uL (4.00-5.40); RDW 15.7 % (11.5-14.5)
[2018-11-24 04:15] LABS: WBC 7.6 10x3/uL (4.8-10.8)
[2018-11-24 04:19] VITALS: BP 162/79
[2018-11-24 04:19] LABS: ANION GAP 15.8 mmol/L (8-16); CALCIUM 8.7 mg/dL (8.5-10.1); CARBON DIOXIDE 23.6 mmol/L (21.0-32.0); CREATININE - SERUM 1.2 mg/dL (0.6-1.3); POTASSIUM - SERUM 4.4 mmol/L (3.5-5.1)
[2018-11-24 08:45] VITALS: BP 175/92
--- NOTE | 2018-11-24 09:57 | NUR ---
PATIENT UP IN BATHROOM ONLY VOIDED. SKIN W/D TO TOUCH, COLOR PINK, RESP. REGULAR AND EVEN AT 18.LUNGS SOUNDS DIMINISHED. ABDOMEN SOFT WITH BS + IN ALL 4 QUADS. PATIENT CONSUMED 80% OF BREAKFAST. TOOK AM MEDS WITHOUT DIFFICULTY. C/L WITHIN REACH AND SR'S UP X'S 2, AND BED IN ;PWEST POSITION.
--- NOTE | 2018-11-24 12:42 | NUR ---
Rehab Note- Met with the patient, has been willing to come to inpatient acute rehab now has decided she is tired of being in the hosptial and just wants to go home and states Dr. Harvey told her she could go home tomorrow and she states she has family that will help her and have home health. Provided contact information for future if needed. Thank you for this referral! Mary Wallace RN Clinical Liaison, [facility] Rehab
[2018-11-24 12:45] VITALS: BP 133/92
--- NOTE | 2018-11-24 13:19 | NUR ---
TRANSCRIBING OPERATORS SUPERVISOR NOTE-PT RESTING QUIETLY WITH EYES CLOSED AND RESP EVEN AND UNLABORED. CALL LIGHT IN REACH
--- NOTE | 2018-11-24 15:48 | MORECARE ---
CASE MANAGEMENT DISCHARGE SUMMARY PATIENT: ROHAN BAUMAN UNIT: [id number] ADM DATE: 11/13/18 AGE: 88 : 29 SEX: F ROOM/BED: D.2228 AUTHOR: DORIAN,DOC PHYSICIAN: REFERRING PHYSICIAN: MARCELLE DO MD DATE OF SERVICE: 11/24/18 Discharge Plan Patient Name: ROHAN BAUMAN Facility: [facility]:[place] : 1930 Planned Disposition: Home Health Service Anticipated Discharge Date: Discharge Date: Expected LOS: Initial Reviewer: [email or web address] Initial Review Date: 11/15/2018 Generated: 11/24/18 4:47 pm Comments DCP- Discharge Planning Updated by [email or web address]: Diana Nuñez on 11/24/18 2:[address] I called Dalia with [facility] and informed of anticipated discharge tomorrow. Clinical faxed to [facility]. I met with patient and she does not want to go to inpatient rehab. States her daughter and grand son will be staying at home with her and she just wants to go home with home health. I spoke with PT and they feel this is a safe discharge. CM will continue to follow and assist with discharge planning/needs. DCP- Discharge Planning Updated by [email or web address]: Diana Nuñez on 11/15/18 2:[address] Patient Name: ROHAN BAUMAN Admission Status: ER Accout number: [id number] Admission Date: 11-13-2018 : 1930 Admission Diagnosis: Attending: MARCELLE DO Current LOS: 2 Anticipated DC Date: Planned Disposition: Home Health Service Primary Insurance: MEDICARE A & B Discharge Planning Comments: CM met with patient to discuss discharge planning, she is alone in the room. States she is independent with all ADL's and IADL's. States she uses her cane when she goes out shopping. States is current with [facility]. States her plan is to return home with resumption of home health. Denies need for additional DME. No additional needs identified. States her family will take her home on discharge. CM will continue to follow and assist with discharge planning/needs. Dispensing Optician: Diana Nuñez DCPIA - Discharge Planning Initial Assessment Updated by [email or web address]: Dianashelly Nuñez on 11/15/18 3:15 pm * Is the patient Alert and Oriented? Yes * How many steps to enter\exit or inside your home? 0/0 * PCP Dr. Do * Pharmacy [facility] on [address] * Preadmission Environment Home Alone * ADLs Independent * Equipment Bedside Commode Cane Walker * List name and contact numbers for known caregivers / representatives who currently or will assist patient after discharge: [facility] - [phone] * Verbal permission to speak to the caregivers and representatives has been obtained from the patient. Yes * Community resources currently utilized Home Health * Please name any agencies selected above. [facility] * Additional services required to return to the preadmission environment? No * Can the patient safely return to the preadmission environment? Yes * Has this patient been hospitalized within the prior 30 days at any hospital? No External Providers External Provider: [facility] Next Contact Date: Service Request Date: Service Type: Resolution: Reviewer: Comments: Last DP export: 11/15/18 2:18 p Patient Name: ROHAN BAUMAN Page [id number] at 1548 All edits/amendments must be made on the electronic document DICTATION DATE: 11/24/181546 POLICE ARTIST: PAMELA 11/24/181546 RPT#: [id number] DC DATE: STATUS: ADM IN [facility] [address] [place] [address] END OF REPORT
[2018-11-24 16:00] VITALS: BP 178/86
--- NOTE | 2018-11-24 19:50 | NUR ---
IV IN LEFT AC RED AND SWOLLEN. DC'D WITH TIP INTACT. ATTEMPTED TO RESITE X2 WITH NO SUCCESS. PER DAY SHIFT ATTEMPTED X3.
[2018-11-24 20:00] VITALS: BP 133/72
[2018-11-25] VITALS: BP 162/83
[2018-11-25 03:00] VITALS: BP 159/71
[2018-11-25 06:20] LABS: BASOPHILS 0.3 % (0-2); EOSINOPHILS 0.1 % (0-7); HEMATOCRIT 41.2 % (36.0-48.0); HEMOGLOBIN 13.4 g/dL (12-16); IMMATURE GRANULOCYTES 4.8 % (0-5); LYMPHOCYTES 8.5 % (15-50); MCHC 32.5 g/dL (31.0-37.0); MCV 79.8 fL (80.0-100.0); MEAN PLATELET VOLUME 10.1 fL (7.4-10.4); MONOCYTES 2.6 % (2-11); NEUTROPHILS 83.7 % (40-80); PLATELET COUNT 301 10x3/uL (130-400); RBC 5.16 10x6/uL (4.00-5.40); RDW 15.8 % (11.5-14.5)
[2018-11-25 06:23] LABS: WBC 10.8 10x3/uL (4.8-10.8)
[2018-11-25 06:37] LABS: ANION GAP 15.8 mmol/L (8-16); CALCIUM 8.9 mg/dL (8.5-10.1); CARBON DIOXIDE 25.8 mmol/L (21.0-32.0); POTASSIUM - SERUM 4.6 mmol/L (3.5-5.1)
--- NOTE | 2018-11-25 08:09 | NUR ---
PT AAOX4 RESP EVEN AND NONLABORED, NO SIGNS OF DISTRESS NOTED, GETTING BREATHING TREATMENT AT THIS TIME, NO QUESTIONS/CONCERNS EXPRESSED, CL IN REACH
--- NOTE | 2018-11-25 08:30 | NUR ---
PATIENT SITTING UP ON THE SIDE OF THE BED WITH NO COMPLAINTS OR SIGNS OF DISTRESS. IV INTACT. CALL LIGHT WITHIN REACH.
[2018-11-25 08:37] VITALS: BP 168/94
[2018-11-25] MEDS ORDERED: IPRAT-ALBUT 0.5-3 ML UPD (09:19)
[2018-11-25] MEDS ORDERED: STERAPRED DS 1010 MG PO (09:29)
--- NOTE | 2018-11-25 10:27 | NUR ---
IV DC WITH CATH INTACT, DC INSTRUCTIONS GIVEN TO PT AND SHE VEABLIZES UNDERSTANDING, FAMILY AT BEDSIDE, NO QUESTIONS/CONCERNS EXPRESSED, LEFT VIA WHEELCHAIR VIA HOSPTIAL STAFF VIA PRIVATE VECHILE IN STABLE CONDTION
--- NOTE | 2018-11-26 15:38 | MORECARE ---
CASE MANAGEMENT DISCHARGE SUMMARY PATIENT: ROHAN BAUMAN UNIT: [id number] ADM DATE: 11/13/18 AGE: 88 : 29 SEX: F ROOM/BED: D.2228 AUTHOR: DORIAN,DOC PHYSICIAN: REFERRING PHYSICIAN: MARCELLE DO MD DATE OF SERVICE: 11/26/18 Discharge Plan Patient Name: ROHAN BAUMAN Facility: [facility]:[place] : 1930 Planned Disposition: Home Health Service Anticipated Discharge Date: Discharge Date: 11/25/2018 Expected LOS: Initial Reviewer: [email or web address] Initial Review Date: 11/15/2018 Generated: 11/26/18 4:37 pm Comments DCP- Discharge Planning Updated by [email or web address]: Mecry Pedraza on 11/26/18 2:[address] Olesya with [facility], called to request patient's prescription be called to [facility]. CM contacted Je with [facility], [facility], provided the prescription information. CM contacted Olesya with [facility] to notify her of same and that the pharmacy will be open until 6 pm today. Mercy Pedraza RN, CM DCP- Discharge Planning Updated by [email or web address]: Diana Savannah on 11/24/18 2:[address] I called Dalia with [facility] and informed of anticipated discharge tomorrow. Clinical faxed to [facility]. I met with patient and she does not want to go to inpatient rehab. States her daughter and grand son will be staying at home with her and she just wants to go home with home health. I spoke with PT and they feel this is a safe discharge. CM will continue to follow and assist with discharge planning/needs. DCP- Discharge Planning Updated by [email or web address]: Diana Renevicki on 11/15/18 2:[address] Patient Name: ROHAN BAUMAN Admission Status: ER Accout number: [id number] Admission Date: 11-13-2018 : 1930 Admission Diagnosis: Attending: MARCELLE DO Current LOS: 2 Anticipated DC Date: Planned Disposition: Home Health Service Primary Insurance: MEDICARE A & B Discharge Planning Comments: CM met with patient to discuss discharge planning, she is alone in the room. States she is independent with all ADL's and IADL's. States she uses her cane when she goes out shopping. States is current with [facility]. States her plan is to return home with resumption of home health. Denies need for additional DME. No additional needs identified. States her family will take her home on discharge. CM will continue to follow and assist with discharge planning/needs. Mechanics Handyman: Diana Renevicki DCPIA - Discharge Planning Initial Assessment Updated by [email or web address]: Dinaa Renevicki on 11/15/18 3:15 pm * Is the patient Alert and Oriented? Yes * How many steps to enter\exit or inside your home? 0/0 * PCP Dr. Do * Pharmacy [facility] * Preadmission Environment Home Alone * ADLs Independent * Equipment Bedside Commode Cane Walker * List name and contact numbers for known caregivers / representatives who currently or will assist patient after discharge: Kristy Winter [facility] - H - [phone] * Verbal permission to speak to the caregivers and representatives has been obtained from the patient. Yes * Community resources currently utilized Home Health * Please name any agencies selected above. [facility] * Additional services required to return to the preadmission environment? No * Can the patient safely return to the preadmission environment? Yes * Has this patient been hospitalized within the prior 30 days at any hospital? No Last DP export: 11/24/18 2:48 pm Patient Name: ROHAN BAUMAN Page [id number] at 1538 All edits/amendments must be made on the electronic document DICTATION DATE: 11/26/181536 MEDICAL ACCOUNTS RECEIVABLE SPECIALIST: PAMELA 11/26/181536 RPT#: [id number] DC DATE:11/25/18 STATUS: DIS IN [place] [address] [place] [address] END OF REPORT
--- NOTE | 2018-11-28 12:12 | MORECARE ---
CASE MANAGEMENT DISCHARGE SUMMARY PATIENT: ROHAN BAUMAN UNIT: [id number] ADM DATE: 11/13/18 AGE: 88 : 29 SEX: F ROOM/BED: D.2228 AUTHOR: DORIAN,DOC PHYSICIAN: REFERRING PHYSICIAN: MARCELLE DO MD DATE OF SERVICE: 11/28/18 Discharge Plan Patient Name: ROHAN BAUMAN Facility: [facility]:[place] : 1930 Planned Disposition: Home Health Service Anticipated Discharge Date: Discharge Date: 11/25/2018 Expected LOS: 0 Initial Reviewer: [email or web address] Initial Review Date: 11/15/2018 Generated: 11/28/18 1:11 pm Comments DCP- Discharge Planning Updated by [email or web address]: Mercy Pedraza on 11/26/18 2:[address] Olesya with [facility], called to request patient's prescription be called to [facility]. CM contacted Je with [facility], [facility], provided the prescription information. CM contacted Olesya with [facility] to notify her of same and that the pharmacy will be open until 6 pm today. Mercy Pedraza RN, CM DCP- Discharge Planning Updated by [email or web address]: Diana [place] on 11/24/18 2:[address] I called Dalia with [facility] and informed of anticipated discharge tomorrow. Clinical faxed to [facility]. I met with patient and she does not want to go to inpatient rehab. States her daughter and grand son will be staying at home with her and she just wants to go home with home health. I spoke with PT and they feel this is a safe discharge. CM will continue to follow and assist with discharge planning/needs. DCP- Discharge Planning Updated by [email or web address]: Diana Renevicki on 11/15/18 2:[address] Patient Name: ROHAN BAUMAN Admission Status: ER Accout number: [id number] Admission Date: 11-13-2018 : 1930 Admission Diagnosis: Attending: MARCELLE DO Current LOS: 2 Anticipated DC Date: Planned Disposition: Home Health Service Primary Insurance: MEDICARE A & B Discharge Planning Comments: CM met with patient to discuss discharge planning, she is alone in the room. States she is independent with all ADL's and IADL's. States she uses her cane when she goes out shopping. States is current with [facility]. States her plan is to return home with resumption of home health. Denies need for additional DME. No additional needs identified. States her family will take her home on discharge. CM will continue to follow and assist with discharge planning/needs. Charge Entry: Diana Renevicki DCPIA - Discharge Planning Initial Assessment Updated by [email or web address]: Diana Renevicki on 11/15/18 3:15 pm * Is the patient Alert and Oriented? Yes * How many steps to enter\exit or inside your home? 0/0 * PCP Dr. Do * Pharmacy [facility] * Preadmission Environment Home Alone * ADLs Independent * Equipment Bedside Commode Cane Walker * List name and contact numbers for known caregivers / representatives who currently or will assist patient after discharge: Kristy Winter DTR - H - [phone] * Verbal permission to speak to the caregivers and representatives has been obtained from the patient. Yes * Community resources currently utilized Home Health * Please name any agencies selected above. [facility] * Additional services required to return to the preadmission environment? No * Can the patient safely return to the preadmission environment? Yes * Has this patient been hospitalized within the prior 30 days at any hospital? No Last DP export: 11/26/18 2:38 p Patient Name: ROHAN BAUMAN Page [phone] at 1212 All edits/amendments must be made on the electronic document DICTATION DATE: 11/28/18 1211 ACCOUNTS RECEIVABLE ACCOUNTANT: PAMELA 11/28/18 1211 RPT#: [id number] DC DATE:11/25/18 STATUS: DIS IN [place] [id number] [place] [address] END OF REPORT
[2018-12-01 18:09] LABS: AEROBE ID Final report (()); RESULT 1 Cutibacterium acnes (())
[2018-12-14 13:18] LABS: FUNGUS MYCOLOGY CULTURE Final report (())
== END 2018-11-25 10:34 | disposition home health service (06) | DRG 190 ==
LOC: D.ER 14:06 → D.MS 17:24 → D.EDHOLD 17:24 → D.MS 20:00
PROVIDERS: Family Medicine; Internal Medicine Pulmonary Disease; ADMIT Family Medicine
PROC: 0BD78ZX Extraction of Left Main Bronchus, Via Natural or Artificial Opening Endoscopic, Diagnostic (ICD-10-PCS; principal; 2018-11-17 11:00)
DX: J47.0 Bronchiectasis with acute lower respiratory infection (principal); J96.01 Acute respiratory failure with hypoxia; E85.81 Light chain (AL) amyloidosis; D80.1 Nonfamilial hypogammaglobulinemia; J15.6 Pneumonia due to other Gram-negative bacteria; I10 Essential (primary) hypertension; E78.5 Hyperlipidemia, unspecified; E03.9 Hypothyroidism, unspecified; R53.81 Other malaise; S82.491A Other fracture of shaft of right fibula, initial encounter for closed fracture; H10.9 Unspecified conjunctivitis; G47.33 Obstructive sleep apnea (adult) (pediatric); Z85.72 Personal history of non-Hodgkin lymphomas

== ENCOUNTER → 2019-03-06 08:47 | Outpatient (CLI) | payer MEDICARE, OTHER ==
[2018-11-14 14:03] VITALS: BMI 26.6
[~2019-03-06 08:47] MED LIST changes: +IPRAT-ALBUT 0.5-3 ML UPD; +MAXZIDE 75/501 TAB PO; +STERAPRED DS 1010 MG PO
== END | disposition home or self-care (01) ==
LOC: D.RT 08:47
PROVIDERS: ATTEND Internal Medicine Pulmonary Disease
DX: J45.991 Cough variant asthma (principal); Z87.01 Personal history of pneumonia (recurrent)